=== PATIENT | female | born 1985 | race American Indian/Alaskan Native ===

== ENCOUNTER 2016-10-26 11:46 | Emergency (ER) | payer MEDICAID, OTHER ==
[2016-10-26 12:17] VITALS: BMI 32.4
[2016-10-26 12:21] VITALS: BP 95/65; PULSE 62; RESP 18; TEMP 97.9; O2SAT 95
--- NOTE | 2016-10-26 12:34 | ED PDOC ---
Arrival/HPI - General Chief Complaint: Eye Problem Time Seen by Provider: 10/26/16 12:29 Historian: Patient - History of Present Illness Narrative History of Present Illness (Text): 10/26/16 12:34 31yr old female presents today with bilateral eye redness. pt states that she was seen at [facility] 3 days ago and placed on erythromycin ointment for a left eye conjunctivitis. pt states the redness has now spread to the right eye. pt c/o tearing in the eyes bilaterally. denies visual changes. no recent trauma or injury. pt denies pain to the eye, complaining only of irritation to the eyes. denies fever/chills. no other complaints. Time/Duration: Other (6 days) Symptom Onset: Gradual Symptom Course: Worsening Quality: Other (no pain) Past Medical History - Provider Review Nursing Documentation Reviewed: Yes - Travel History Have you recently traveled outside [place] w/in the past 3 mons?: No - Infectious Disease Hx of Infectious Diseases: None - Tetanus Immunization Tetanus Immunization: Unknown - Gastrointestinal Hx Gall Bladder Disease: Yes - Psychiatric Hx Substance Use: No - Surgical History Hx Cholecystectomy: Yes - Anesthesia Hx Anesthesia: Yes Hx Anesthesia Reactions: No Hx Malignant Hyperthermia: No Family/Social History - Physician Review Nursing Documentation Reviewed: Yes Family/Social History: Unknown Family HX Smoking Status: Never Smoked Hx Alcohol Use: Yes Frequency of alcohol use: Socially Hx Substance Use: No Allergies/Home Meds Allergies/Adverse Reactions: Allergies No Known Allergies Allergy (Verified 10/26/16 12:17) Review of Systems - Review of Systems Constitutional: absent: Fatigue, Fevers Eyes: Other (red eye bilaterally). absent: Vision Changes, Photophobia, Eye Pain Respiratory: absent: SOB, Cough Cardiovascular: absent: Chest Pain, Palpitations Gastrointestinal: absent: Abdominal Pain, Nausea, Vomiting Musculoskeletal: absent: Arthralgias Skin: absent: Rash, Pruritis Neurological: absent: Headache, Dizziness Psychiatric: absent: Anxiety, Depression Physical Exam Vital Signs Reviewed: Yes Vital Signs Temp Pulse Resp BP Pulse Ox 10/26/16 12:20 97.9 F 62 18 95/65 L 95 Temperature: Afebrile Blood Pressure: Normal Pulse: Regular Respiratory Rate: Normal Appearance: Positive for: Well-Appearing, Non-Toxic, Comfortable Pain Distress: None Mental Status: Positive for: Alert and Oriented X 3 - Systems Exam Head: Present: Atraumatic Pupils: Present: PERRL Extroacular Muscles: Present: EOMI. No: Entrapment Conjunctiva: Present: Injected (bilateral conjunctival injection. ), Other (no hypema, ) Mouth: Present: Moist Mucous Membranes Neck: Present: Normal Range of Motion Respiratory/Chest: Present: Clear to Auscultation, Good Air Exchange. No: Respiratory Distress, Accessory Muscle Use Cardiovascular: Present: Regular Rate and Rhythm Neurological: Present: GCS=15 Skin: Present: Warm, Dry, Normal Color. No: Rashes Psychiatric: Present: Alert, Oriented x 3 Medical Decision Making ED Course and Treatment: 10/26/16 13:55 Patient is nontoxic well appearing in no distress Visual acuity within normal limits bilateral Conjunctival injection noted left greater than right, PERRLA, extraocular muscles intact pt was advised to use abx eye drops and f/u with eye doctor. advised immediate return if symptoms worsen,persist or if new symptoms develop. Patient verbalizes understanding of discharge instructions and need for immediate followup. Impression: Conjunctivitis Tobrex: 2 drops in the affected eye 4 times daily Followup with the eye doctor within the next 2 days Return immediately if symptoms worsen persist or if new symptoms develop; blurry vision, worsening eye pain, worsening redness or any other concerning symptoms develop. Follow up with her primary care physician within the next 2 days Disposition/Present on Arrival - Present on Arrival Any Indicators Present on Arrival: No History of DVT/PE: No History of Uncontrolled Diabetes: No Urinary Catheter: No History of Decub. Ulcer: No History Surgical Site Infection Following: None - Disposition Have Diagnosis and Disposition been Completed?: Yes Diagnosis: Conjunctivitis Disposition: HOME/ ROUTINE Disposition Time: 13:13 Patient Plan: Discharge Condition: GOOD Discharge Instructions (ExitCare): Conjunctivitis (ED) Additional Instructions: Tobrex: 2 drops to both eyes 4 times daily x 7 days Followup with the eye doctor within the next 2 days Return immediately if symptoms worsen persist or if new symptoms develop; blurry vision, worsening eye pain, worsening redness or any other concerning symptoms develop. Follow up with her primary care physician within the next 2 days Prescriptions: Tobramycin 0.3% [Tobramycin 5 Ml] 2 drop OU QID #1 bottle Referrals: Bob Villegas MD [Staff Provider] - Follow up with primary Fanny Jerez MD [Staff Provider] - Follow up with primary Forms: [employer] (Khmer), WORK NOTE
== END 2016-10-26 13:30 | disposition home or self-care (01) ==
LOC: ED 11:46
DX: H10.9 Unspecified conjunctivitis (principal)